=== PATIENT | female | born 1960 | race Caucasian/White ===

== ENCOUNTER → 2018-05-21 | Outpatient (CLI) | payer OTHER | LOC: M.RAD 13:15 | DX: Z12.31 Encounter for screening mammogram for malignant neoplasm of breast (principal) ==

== ENCOUNTER → 2019-05-29 | Outpatient (CLI) | payer OTHER | LOC: M.RAD 14:36 | DX: Z12.31 Encounter for screening mammogram for malignant neoplasm of breast (principal) ==

== ENCOUNTER → 2020-06-02 | Outpatient (CLI) | payer OTHER | LOC: M.RAD 14:28 | DX: Z12.31 Encounter for screening mammogram for malignant neoplasm of breast (principal) ==